=== PATIENT | male | born 1950 | race Two or more races ===

== ENCOUNTER 2020-10-14 07:09 | Outpatient (CLI) | payer MEDICARE | END 2020-10-14 23:59 | disposition home or self-care (01) | LOC: ROC 07:09 | PROVIDERS: ATTEND Radiology Radiation Oncology | DX: C61 Malignant neoplasm of prostate (principal) | CPT/HCPCS: 99214; G0463 ==

== ENCOUNTER → 2020-11-08 | Outpatient (CLI) | payer MEDICARE ==
[~2020-11-08] MED LIST: FENTANYL PF 100 MCG/2ML IVPush ONE; LIDOCAINE/PF 1%, 30ML IV ONE; MIDAZOLAM 1 MG/ML, 5ML IVPush ONE
== END | disposition home or self-care (01) ==
LOC: ROC 07:48
PROVIDERS: ATTEND Radiology Radiation Oncology
DX: C61 Malignant neoplasm of prostate (principal); I10 Essential (primary) hypertension; F17.210 Nicotine dependence, cigarettes, uncomplicated
CPT/HCPCS: 55876; 76942; 77332; 99156; A4648; J2250; J3010

== ENCOUNTER 2021-03-31 08:03 | Outpatient (CLI) | payer MEDICARE | END 2021-03-31 23:59 | disposition home or self-care (01) | LOC: ROC 08:03 | PROVIDERS: ATTEND Radiology Radiation Oncology | DX: Z08 Encounter for follow-up examination after completed treatment for malignant neoplasm (principal); Z85.46 Personal history of malignant neoplasm of prostate | CPT/HCPCS: 99213; G0463 ==